=== PATIENT | female | born 1985 | race Caucasian/White ===

== ENCOUNTER 2016-09-06 18:50 | Emergency (ER) | payer OTHER ==
[~2016-09-06] VITALS: Ht 154.9 cm; Wt 50.8 kg
[2016-09-06 18:53] VITALS: TEMP 36.8; Ht 154.9 cm; Wt 50.8 kg
[2016-09-06] MEDS ORDERED: ONDANSETRON 4 MG TAB PO ONE (19:30)
[2016-09-06] MEDS ORDERED: VENLAFAXINE HCL XR 75 MG CAPXR PO ONE ×2 (19:30→21:15)
[2016-09-06] MEDS ORDERED: VENL150T33 PO (19:32)
--- NOTE | 2016-09-06 20:16 | EMERGENCY ROOM VISIT NOTE ---
ED Visit Note First contact with patient: 18:57 Resident Physician Supervision Note: I interviewed and examined the patient. Discussed with Dr. Reese and agree with findings and plan as documented in the note. Any exceptions or clarifications are listed here: [None] Documented By: Ricardo Min
[2016-09-06] MEDS ORDERED: ACETAMINOPHEN 500 MG TAB PO STA (20:26)
--- NOTE | 2016-09-06 20:45 | EMERGENCY ROOM VISIT NOTE ---
History First contact with patient: 18:57 Chief Complaint: DIZZY Stated Complaint: NAUSEA, DIZZINESS, HOT/COLD FLASHES, ANXI MEDS OUT Nursing Triage Summary: Pt has felt dizzy for the last 48 hours. Pt said it would come and go but now has gotten worse. Pt now has nausea. Pt stated that she has not actually passes out but feel as if she may. History of Present Illness The patient is a 31 year old female who presents to the Emergency Room with complaints of nausea and dizziness. Patient states that she ran out of her Effexor on night. She recently was given a 30 day course of 150mg of Effexor for Anxiety at [facility]. She attempted to contact them her doctor at some time last week to get a refill but was not responded to. She was supposed to follow up with them this week in order to lower the dose (she states its is supposed to be halved). The symptoms started Wednesday the day after stopping the medication, but acutely worsened yesterday and have continued to progress to the point that she is continuously nauseous. She denies any headache or vomiting. She also complains of chills that have been going on since yesterday. Review of Systems See HPI for pertinent positives and negatives. A total of ten systems were reviewed and were otherwise negative. Social History Smoking Status: Never Smoker Current/Historical Medications Scheduled Venlafaxine Hcl (Venlafaxine Hcl Er), 150 MG PO QPM Allergies Coded Allergies: No Known Allergies (Unverified , 09/06/16) Physical Exam Vital Signs Date Time Temp Pulse Resp B/P Pulse Ox O2 Delivery O2 Flow Rate FiO2 09/06/16 20:37 55 18 106/73 100 Room Air 09/06/16 18:53 36.8 63 16 124/80 97 Room Air Physical Exam GENERAL: Awake, alert, well-appearing, in no distress HENT: Normocephalic, atraumatic. EYES: Normal conjunctiva. Sclera non-icteric. NECK: Supple. No nuchal rigidity. RESPIRATORY: Clear to auscultation. CARDIAC: Regular rate, normal rhythm. Extremities warm and well perfused. Pulses equal. ABDOMEN: Soft, non-distended. No tenderness to palpation. No rebound or guarding. No masses. RECTAL: Deferred. LOWER EXTREMITIES: Calves are equal size bilaterally and non-tender. No edema. No discoloration. NEURO: Normal sensorium. No sensory or motor deficits noted. PERRL. EOMI. CN II- XII grossly intact. SKIN: No rash or jaundice noted. Medical Decision & Procedures Laboratory Results Test 09/06/16 19:44 Urine Test NEG (NEG) Medications Administered Medications (Trade) Dose Ordered Sig/Betina Route Start Time Stop Time Status Last Admin Dose Admin Ondansetron HCl (Zofran Tab) 4 mg ONE ONCE PO 09/06/16 19:30 09/06/16 19:32 DC 09/06/16 20:06 4 MG Venlafaxine HCl (effeXOR EXTENDED REL CAP) 75 mg ONE ONCE PO 09/06/16 19:30 09/06/16 19:32 DC 09/06/16 20:06 75 MG Acetaminophen (Tylenol Tab) 1,000 mg NOW STAT PO 09/06/16 20:26 09/06/16 20:30 DC 09/06/16 20:36 1,000 MG Medical Decision Patient is a 31 year old female that presents with a 3 day history of nausea and dizziness Etiologies such as benign positional vertigo, cardiac sources, toxicologic, neurologic, as well as others were entertained Patient given dose of 75mg Effexor for withdrawal symptoms as well as 4mg Zofran for the Nausea Patient given 1g of Tylenol for headache Patient states that nausea is improved and feeling better Impression Primary Impression: Medication withdrawal Departure Information Dispostion Home / Self-Care Condition GOOD Referrals Griselda Martinez (PCP) Patient Instructions My [facility] Problem Qualifiers Primary Impression: Medication withdrawal Substance type: sedative, hypnotic or anxiolytic Qualified Codes: F13.239 - Sedative, hypnotic or anxiolytic dependence with withdrawal, unspecified
[2016-09-06] MEDS ORDERED: VENL75CA PO (20:51)
[2016-09-06 21:25] VITALS: BP 107/73; PULSE 57; O2SAT 100
== END 2016-09-06 21:26 | disposition home or self-care (01) ==
LOC: C.EDB 18:51 → C.EDA 21:26
DX: F13.239 Sedative, hypnotic or anxiolytic dependence with withdrawal, unspecified (principal); R11.0 Nausea; R42 Dizziness and giddiness; F41.9 Anxiety disorder, unspecified; Z79.899 Other long term (current) drug therapy